=== PATIENT | male | born 1995 | race Caucasian/White ===

== ENCOUNTER 2022-01-15 14:20 | Emergency (ER) | payer OTHER ==
[2022-01-15 14:47] VITALS: BP 122/77; PULSE 74; RESP 18; TEMP 98.6; BMI 29.2
[2022-01-15] MEDS ORDERED: DIPHTH,PERTUSS(ACELL),TET 0.5 ML DISP.SYRIN IM ONE ×2 (15:09→15:11)
[2022-01-15] MEDS ORDERED: BACITRACIN 15 GM TUBE TOPICAL OINTMENT ONE (15:38)
== END 2022-01-15 15:46 | disposition home or self-care (01) ==
LOC: JERFT 14:20
PROC: 3E0234Z Introduction of Serum, Toxoid and Vaccine into Muscle, Percutaneous Approach (ICD-10-PCS; principal; 2022-01-15)
DX: S60.552A Superficial foreign body of left hand, initial encounter (principal)
CPT/HCPCS: 73130-TC-LT-FY; 90471; 90715; 99284-25